=== PATIENT | female | born 1990 | race Caucasian/White ===

== ENCOUNTER 2019-03-20 09:47 | Emergency (ER) | payer OTHER, SELFPAY ==
--- NOTE | 2019-03-20 09:49 | ED.GENADULT ---
HPI - General Adult General Chief complaint: Upper Respiratory Infection Stated complaint: sore throat Time Seen by Provider: 03/20/19 10:13 Source: patient Mode of arrival: ambulatory Limitations: no limitations History of Present Illness HPI narrative: 28-year-old female patient presents to the [facility] with complaints of cold symptoms and sore throat for the past week and a half. Patient states that her sore throat has gotten worse the past couple of days. Denies any fever this that she is aware of. Patient states she has had a little bit of cough and some congestion denies any chest pain or shortness of breath at this time. Patient unsure if she got a flu shot or not this year states that she did recently did have a baby in December. Related Data Allergies Allergy/AdvReac Type Severity Reaction Status Date / Time amoxicillin Allergy Unknown Hives Verified 03/20/19 10:01 Review of Systems Review of Systems: Narrative: CONSTITUTIONAL: Denies fever, chills, or sweats. EYES: Denies visual changes, redness, or discharge. ENT: Denies rhinorrhea, congestion, positive sore throat, or otalgia. CARDIOVASCULAR: Denies chest pain, palpitations, or edema. RESPIRATORY: Positive cough denies dyspnea. GASTROINTESTINAL: Denies abdominal pain, nausea, vomiting, or diarrhea. GENITOURINARY: Denies dysuria or hematuria. SKIN: Denies rash or itching. MUSCULOSKELETAL: Denies back pain, joint pain, or myalgia. NEUROLOGIC: Denies headache, numbness, or weakness. PSYCHIATRIC: Denies anxiety or depression. [facility] Past Medical History Medical History Delivery by section of full-term Hypertension Tobacco abuse Surgical History Surgical History Hx of tubal ligation Previous section Family History Family History Mother Diabetes mellitus Family history of hypercholesterolemia Grandparent Carcinoma of colon Other Cerebrovascular accident Family history of malignant neoplasm of breast Social History Social History Smoking packs per day: 0.5 Smoking cigarettes per day: 10.0 Smoking status: Current every day smoker Tobacco type: cigarettes Second hand tobacco smoke exposure: Yes Alcohol intake: current Substance use: current Substance use type: marijuana Gender identity (if verbalized by the patient): Female Comments At the time of my signature I agree with nursing past medical history, surgical, social, and family history. There is no relevant family history pertinent to the presenting complaint. Exam Narrative: Exam Narrative: GENERAL: Well-appearing, well-nourished, and in no acute distress. HEAD: Normocephalic, atraumatic. EYES: PERRLA and EOMI. ENT: Nares with erythema and edema noted bilaterally, no rhinorrhea or epistaxis. Mucous membranes moist. Posterior pharynx with some erythema but no tonsillar large but no exudates or lesions present. Bilateral TMs are clear no erythema or foreign bodies in the canal. NECK: Supple. No lymphadenopathy CHEST: Clear to auscultation. No respiratory distress. HEART: Regular rate and rhythm. No murmur heard. Normal peripheral pulses. ABDOMEN: Soft, nontender, nondistended, normal active bowel sounds. EXTREMITIES: Normal range of motion. No edema. SKIN: Warm, dry, no rash. NEURO: No focal deficits. Alert and oriented x3. Course Vital Signs Vital signs: Vital Signs Temperature 36.4 C L 03/20/19 09:51 Pulse Rate 111 H 03/20/19 09:51 Respiratory Rate 18 03/20/19 09:51 Blood Pressure 100/70 03/20/19 09:51 Pulse Oximetry 99 03/20/19 09:51 Temperature 36.4 C L 03/20/19 09:51 Pulse Rate 111 H 03/20/19 09:51 Respiratory Rate 18 03/20/19 09:51 Blood Pressure 100/70 03/20/19 09:51 Pulse Oximetry 99 0
[2019-03-20 09:51] VITALS: BP 100/70; PULSE 111; RESP 18; TEMP 36.4; O2SAT 99
== END 2019-03-20 10:28 | disposition home or self-care (01) ==
PROVIDERS: Emergency Provider Nurse Practitioner Family
DX: J02.0 Streptococcal pharyngitis (principal); F17.210 Nicotine dependence, cigarettes, uncomplicated; I10 Essential (primary) hypertension
CPT/HCPCS: 87880; 99213; G0463

== ENCOUNTER 2019-10-08 10:55 | Emergency (ER) | payer OTHER, SELFPAY ==
[2019-10-08 11:08] VITALS: BP 100/64; PULSE 73; RESP 16; TEMP 36.7; O2SAT 100
--- NOTE | 2019-10-08 11:25 | ED.FEMALEGU ---
HPI - Female Genitourinary General Chief complaint: Urogenital-Female Stated complaint: Urogenital-female Time Seen by Provider: 10/08/19 11:20 Source: patient and RN notes reviewed Mode of arrival: ambulatory Limitations: no limitations History of Present Illness HPI Narrative: Patient presents today complaining of dysuria, urgency, and frequency since yesterday. She noted some blood on her toilet paper this morning. Denies fever, abdominal pain, back pain. No recent antibiotic use. Patient tried Azo yesterday without relief. MD elicited complaint: dysuria Related Data Allergies Allergy/AdvReac Type Severity Reaction Status Date / Time amoxicillin Allergy Unknown Hives Verified 10/08/19 11:21 Review of Systems Review of Systems: Narrative: CONSTITUTIONAL: Denies body aches, fever, chills, or sweats. EYES: Denies visual changes, redness, or discharge. ENT: Denies rhinorrhea, congestion, sore throat, or otalgia. CARDIOVASCULAR: Denies chest pain, palpitations, or edema. RESPIRATORY: Denies cough or dyspnea. GASTROINTESTINAL: Denies abdominal pain, nausea, vomiting, or diarrhea. GENITOURINARY: +Dysuria, urgency, frequency, blood on toilet paper SKIN: Denies rash, itching, or wounds. MUSCULOSKELETAL: Denies back pain, joint pain, or myalgia. NEUROLOGIC: Denies headache, numbness, tingling, or weakness. PSYCH: Denies depression or anxiety. PMFSH Social History Social History Smoking packs per day: 0.5 Smoking cigarettes per day: 10.0 Smoking status: Current every day smoker Tobacco type: cigarettes Second hand tobacco smoke exposure: Yes Alcohol intake: current Substance use: current Substance use type: marijuana Gender identity (if verbalized by the patient): Female Comments At time of signature, I have reviewed and agree with nursing past medical, surgical, social and family history unless otherwise noted. Please see nursing chart for further information. There is no relevant family history pertinent to the presenting complaint Exam Narrative: Exam Narrative: GENERAL: Well-appearing, well-nourished, and in no acute distress. HEAD: Normocephalic, atraumatic. EYES: EOMI. No redness or drainage. Conjunctivae normal. ENT: Mucous membranes pink and moist. NECK: Normal AROM. Supple. No lymphadenopathy. CHEST: No respiratory distress. Clear to auscultation. HEART: Regular rate and rhythm. No murmur appreciated. Normal peripheral pulses. ABDOMEN: Soft, nondistended, normal active bowel sounds.-CVAT, Mild suprapubic tenderness MUSCULOSKELETAL: No bony tenderness. EXTREMITIES: Normal range of motion. No edema. SKIN: Warm, dry, no rash. Capillary refill normal. Normal skin turgor. NEURO: No focal deficits. Alert and oriented x3. Gait steady. PSYCH: Normal affect. No signs of depression or anxiety. Course Vital Signs Vital signs: Vital Signs Temperature 98.0 F 10/08/19 11:08 Pulse Rate 73 10/08/19 11:08 Respiratory Rate 16 10/08/19 11:08 Blood Pressure 100/64 10/08/19 11:08 Pulse Oximetry 100 10/08/19 11:08 Temperature 98.0 F 10/08/19 11:08 Pulse Rate 73 10/08/19 11:08 Respiratory Rate 16 10/08/19 11:08 Blood Pressure 100/64 10/08/19 11:08 Pulse Oximetry 100 10/08/19 11:08 Reviewed MDM - Female Genitourinary Differential Diagnosis Differential diagnosis: Likely urinary tract infection, vaginitis, cystitis and other (Pyelonephritis) Lab Data Attestation: I reviewed the patient's lab results. Labs: Urine Glucose Negative Reference Range: Negative Urine Bilirubin Negative Reference Range: Negative Urine Ketone Negative Reference Range: Negative Urine Specific [place] 1.030 Reference Range:1.001-1.035 Urine Blood 3+ Reference Range: Negative * *
== END 2019-10-08 11:31 | disposition home or self-care (01) ==
PROVIDERS: Emergency Provider Nurse Practitioner
DX: N30.01 Acute cystitis with hematuria (principal); F17.210 Nicotine dependence, cigarettes, uncomplicated
CPT/HCPCS: 81003; 87077; 87086; 87088; 87186; 99213; G0463

== ENCOUNTER 2020-01-08 13:07 | Emergency (ER) | payer OTHER, SELFPAY ==
[2020-01-08 13:10] VITALS: BP 132/66; PULSE 77; RESP 18; TEMP 36.3; O2SAT 99
--- NOTE | 2020-01-08 13:10 | ED.FEMALEGU ---
HPI - Female Genitourinary General Chief complaint: Urogenital-Female Stated complaint: UTI Time Seen by Provider: 01/08/20 13:10 Source: patient and RN notes reviewed History of Present Illness HPI Narrative: Patient is a 29-year-old female who presents the urgent care with complaints of a possible UTI. Patient states that she had a tubal after her last baby and has had 6 UTIs in the last year. Patient states that her symptoms started today with burning with urination, urinary frequency, suprapubic pressure, decreased urine amounts, and blood when she wipes. Patient denies of any fever, chills, nausea, vomiting. Patient's last 2 antibiotics were Macrobid in September and Sulfa in October. No other acute complaints. No acute distress noted. Patient aware of the plan of care. Some parts of this dictation were generated by voice recognition software and may contain typographical and/or grammatical inaccuracies. Related Data Allergies Allergy/AdvReac Type Severity Reaction Status Date / Time amoxicillin Allergy Unknown Hives Verified 01/08/20 13:19 Review of Systems Review of Systems: Narrative: CONSTITUTIONAL: Denies fever, chills, or sweats. EYES: Denies visual changes, redness, or discharge. ENT: Denies rhinorrhea, congestion, sore throat, or otalgia. CARDIOVASCULAR: Denies chest pain, palpitations, or edema. RESPIRATORY: Denies cough or dyspnea. GASTROINTESTINAL: Denies abdominal pain, nausea, vomiting, or diarrhea. GENITOURINARY: Reports of dysuria, urinary frequency, decreased urine amounts, suprapubic pressure and hematuria SKIN: Denies rash or itching. MUSCULOSKELETAL: Denies back pain, joint pain, or myalgia. NEUROLOGIC: Denies headache, numbness, or weakness. All other systems reviewed are negative, except as documented in HPI. [facility] Past Medical History Medical History (Updated 01/08/20 @ 13:27 by ALEXANDER La) Delivery by section of full-term Hypertension Tobacco abuse Surgical History Surgical History Hx of tubal ligation Previous section Family History Family History Mother Diabetes mellitus Family history of hypercholesterolemia Grandparent Carcinoma of colon Other Cerebrovascular accident Family history of malignant neoplasm of breast Social History Social History Smoking packs per day: 0.5 Smoking cigarettes per day: 10.0 Smoking status: Current every day smoker Tobacco type: cigarettes Second hand tobacco smoke exposure: Yes Alcohol intake: current Substance use: current Substance use type: marijuana Gender identity (if verbalized by the patient): Female Comments At the time of my signature, I reviewed and agree with the nursing past medical, surgical, social, and family history. There is no relevant family history pertinent to the patient complaint. Exam Narrative: Exam Narrative: GENERAL: This is a well-nourished, well-developed patient, in no apparent distress. HEAD: normocephalic, atraumatic. EYES: PERRL. Sclera clear/white. Vision is grossly intact. EARS: External ears normal NOSE: External nose normal with no obvious nasal discharge, nares without redness, no rhinorrhea. THROAT: Mucous membranes moist GASTROINTESTINAL: Abdomen soft, non-tender, nondistended. Bowel sounds are active. No hepato-splenomegaly, or palpable masses. No guarding. SKIN: warm, intact with no suspicious lesions or rash, good texture and turgor. NEURO: awake, alert, and oriented to person, place and time. There were no obvious focal neurologic abnormalities. EXTREMITIES: No clubbing, cyanosis, or edema. BACK: Nontender without deformity or crepitance. No flank tenderness. Course Vital Signs Vital signs: Vital Signs Temperature 97.3 F L 01/08/20 13:10 Pulse Rate 77 01/08/20 13:10 Re
== END 2020-01-08 13:30 | disposition home or self-care (01) ==
PROVIDERS: Emergency Provider Nurse Practitioner Family
DX: N39.0 Urinary tract infection, site not specified (principal); F17.210 Nicotine dependence, cigarettes, uncomplicated; I10 Essential (primary) hypertension
CPT/HCPCS: 81003; 87077; 87086; 87088; 87186; 99213; G0463

== ENCOUNTER 2020-06-09 12:42 | Emergency (ER) | payer OTHER, SELFPAY ==
--- NOTE | ~2020-06-09 | US_ITS ---
US venous doppler [facility] DATE: 06/09/2020 14:44 INDICATION: Left lower extremity pain TECHNIQUE: Real-time and color flow imaging and Doppler analysis of the veins of the left lower extre mity COMPARISON: None FINDINGS: There is flow in the greater saphenous vein. There is spontaneous and phasic flow and kelly l augmentation and normal color flow signal of the deep veins of the left leg. IMPRESSION: Negative examination; no evidence of deep venous thrombosis Reviewed, dictated and finalized at [facility] Reviewed, dictated and finalized at [facility].
[2020-06-09 12:44] VITALS: BP 124/80; PULSE 103; RESP 17; TEMP 36.1; O2SAT 99
--- NOTE | 2020-06-09 13:51 | ED.GENADULT ---
HPI - General Adult General Chief complaint: Extremity Problem,Nontraumatic Stated complaint: leg pain hx of DVT Time Seen by Provider: 06/09/20 13:09 Source: patient History of Present Illness HPI narrative: Patient is 29 y/o female complaining of left lower leg pain since yesterday. She describes her pain as a soreness and rates her pain as 6-7/10. There is no pain radiation. She has no chest pain or SOB. She states that she was recently diagnosed with DVT at [facility]. She was started on Xarelto. Related Data Home Medications Medication Instructions Recorded Confirmed oxycodone-acetaminophen 5 mg-325 1 tablet PO Q6H PRN 06/09/20 mg tablet rivaroxaban 15 mg tablet 15 mg PO BID tablet 06/09/20 Allergies Allergy/AdvReac Type Severity Reaction Status Date / Time amoxicillin Allergy Unknown Hives Verified 06/09/20 12:48 Review of Systems Constitutional: Constitutional: Denies chills, Denies fever(s), Denies headache(s) and Denies weakness Eyes: Eyes: Denies blurry vision ENT: Denies headache(s) and Denies neck pain Cardiovascular: Cardiovascular: Denies chest pain and Denies dyspnea Respiratory: Respiratory: Denies cough and Denies dyspnea Gastrointestinal: Gastrointestinal: Denies abdominal pain, Denies diarrhea, Denies nausea and Denies vomiting Genitourinary: Genitourinary: Denies hematuria and Denies dysuria Musculoskeletal: Musculoskeletal: Denies back pain, Denies neck pain and Reports other (left leg pain) Neurologic: Denies headache(s) and Denies weakness COUNT INCLUDES THE [facility] Past Medical History Medical History (Updated 06/09/20 @ 14:56 by Romana Vitale MD) Delivery by section of full-term infant Hypertension Tobacco abuse Surgical History Surgical History Hx of tubal ligation Previous section Family History Family History Mother Diabetes mellitus Family history of hypercholesterolemia Grandparent Carcinoma of colon Other Cerebrovascular accident Family history of malignant neoplasm of breast Social History Social History Smoking packs per day: 0.5 Smoking cigarettes per day: 10.0 Smoking status: Current every day smoker Tobacco type: cigarettes Second hand tobacco smoke exposure: Yes Alcohol intake: current Substance use: current Substance use type: marijuana Gender identity (if verbalized by the patient): Female Exam Const: General: no acute distress and well developed Orientation/consciousness: oriented to person, oriented to place, oriented to time and patient oriented x3 HENMT: Head: normocephalic Ears: external ears normal General nose exam: Normal external nose present Eyes: General: appearance normal, both eyes and all related structures Conjunctivae: conjunctivae normal Neck: Neck: normal visual inspection and full ROM Chest: Chest palpation & inspection: normal inspection of the chest and no tenderness Resp: Effort & Inspection: normal respiratory effort Auscultation: clear to auscultation bilaterally Cardio: Rate: regular rate Rhythm: regular rhythm GI: GI Palp: No abdominal tenderness and Yes Soft to palpation Skin: General skin exam: normal color and turgor normal Neuro: General: oriented to person, oriented to place, oriented to time and patient oriented x3 Cognition (Neuro): normal cognition Extrem: General: normal to inspection, full ROM and no pedal edema Psych: Appearance: grossly normal Mental Status: mental status grossly normal Affect: normal affect Course Vital Signs Vital signs: Vital Signs Temperature 36.1 C L 06/09/20 12:44 Pulse Rate 103 H 06/09/20 12:44 Respiratory Rate 17 06/09/20 12:44 Blood Pressure 124/80 06/09/20 12:44 Pulse Oximetry 99 06/09/20 12:44 Temperature 36.1 C L 06/09/20 12:44 Pulse Rate 103 H
[2020-06-09 14:26] LABS: Add Urine Microscopic? YES; Appearance Urine Cloudy (Clear); Bacteria Urine Trace /hpf; Bilirubin Urine Negative (Negative); Blood Urine 1+ (Negative); Color Urine Yellow (Yellow); Glucose Urine UA Negative (Negative); Ketones Urine Negative (Negative); Leukocyte Esterase Ur 3+ LEU/UL (Negative); Mucus Urine Few /lpf; Nitrate Urine Negative (Negative); Protein Urine Negative (Negative); RBC Urine 21-50 /hpf (0-2); Specific Grav Ur 1.026 (1.001-1.035); Squamous Epithelial Cell Urine Many /hpf (Few); Urobilinogen Urine Negative mg/dL (<2.0); WBC Urine 31-50 /hpf
== END 2020-06-09 15:06 | disposition home or self-care (01) ==
PROVIDERS: Emergency Provider Emergency Medicine; PCP Physician Assistant
DX: M79.662 Pain in left lower leg (principal); F17.210 Nicotine dependence, cigarettes, uncomplicated; I10 Essential (primary) hypertension
CPT/HCPCS: 81001; 81025; 87077; 87086; 87088; 87186; 93971; 99284

== ENCOUNTER 2021-11-10 15:22 | Emergency (ER) | payer OTHER, SELFPAY ==
[2021-11-10 15:40] VITALS: BP 120/61; PULSE 83; RESP 16; TEMP 36.6; O2SAT 99
--- NOTE | 2021-11-10 16:20 | ED.URI ---
HPI - URI/Sore Throat General Chief Complaint: Upper Respiratory Infection Stated Complaint: Sore Throat Time Seen by Provider: 11/10/21 15:38 Source: patient, RN notes reviewed and old records reviewed Mode of arrival: ambulatory Limitations: no limitations History of Present Illness HPI Narrative: 31-year-old female presents to [facility] care with complaints of 2-1/2 days of severe pain to her throat which she describes as burning and rates it 8/10. Patient also has cough noted which is dry and hacking.no tachypnea noted or accessory muscle use noted. Patient states she has not taken any OTC medications for her symptoms. Patient states that she looked at her throat today and though she had better been seen. Patient denies any known fevers, chills or sweats, denies any body aches. MD elicited complaint: cough and sore throat Onset (ago): day(s) (2.5 days of symptoms) Pain scale (0-10): 8 Exacerbating factors: swallowing and other (coughing ) Treatments prior to arrival: none Related Data Home Medications Medication Instructions Recorded Confirmed meloxicam 7.5 mg tablet 7.5 mg PO DAILY 11/10/21 11/10/21 Allergies Allergy/AdvReac Type Severity Reaction Status Date / Time amoxicillin Allergy Unknown Hives Verified 11/10/21 15:38 Review of Systems Review of Systems: CONSTITUTIONAL: Denies fever, chills, or sweats. EYES: Denies visual changes, redness, or discharge. ENT: positive for rhinorrhea, congestion, sore throat, no otalgia. CARDIOVASCULAR: Denies chest pain, palpitations, or edema. RESPIRATORY: positive for cough denies dyspnea. GASTROINTESTINAL: Denies abdominal pain, nausea, vomiting, or diarrhea. GENITOURINARY: Denies dysuria or hematuria. SKIN: Denies rash or itching. MUSCULOSKELETAL: Denies back pain, joint pain, or myalgia. NEUROLOGIC: Denies headache, numbness, or weakness. PSYCHIATRIC: Denies anxiety or depression. All systems reviewed & are unremarkable except as noted in HPI and below PMFSH Past Medical History Medical History Delivery by section of full-term infant Hypertension Tobacco abuse Surgical History Surgical History Hx of tubal ligation Previous section Family History Family History Mother Diabetes mellitus Family history of hypercholesterolemia Grandparent Carcinoma of colon Other Cerebrovascular accident Family history of malignant neoplasm of breast Social History Social History Smoking packs per day: 0.5 Smoking cigarettes per day: 10.0 Smoking status: Current every day smoker Tobacco type: cigarettes Second hand tobacco smoke exposure: Yes Alcohol intake: current Substance use: current Substance use type: marijuana Gender identity (if verbalized by the patient): Female Comments At time of signature, agree with nursing past medical, surgical, social and family history. There is no relevant family history pertinent to the presenting complaint Exam Narrative: GENERAL:ill-appearing, well-nourished, and in no acute distress. HEAD: Normocephalic, atraumatic. EYES: PERRLA and EOMI. ENT: Nares with mild redness with clear rhinorrhea no epistaxis. Mucous membranes moist. TM's with good light reflex, throat red swollen with enlarged tonsils, uvula red and swollen. Patient reports burning throat pain and painful swallowing NECK: Supple.lymphadenopathy CHEST: Clear to auscultation. No respiratory distress.hacking dry cough noted which increases throat pain HEART: Regular rate and rhythm. No murmur heard. Normal peripheral pulses. ABDOMEN: Soft, nontender, nondistended, normal active bowel sounds. EXTREMITIES: Normal range of motion. No edema. SKIN: Warm, dry, no rash. NEURO: No focal deficits. Alert and oriented x3. [facility]
== END 2021-11-10 16:35 | disposition home or self-care (01) ==
PROVIDERS: Emergency Provider Registered Nurse; PCP Physician Assistant
DX: R05.1 Acute cough (principal); J03.90 Acute tonsillitis, unspecified; F17.210 Nicotine dependence, cigarettes, uncomplicated; F12.90 Cannabis use, unspecified, uncomplicated; I10 Essential (primary) hypertension
CPT/HCPCS: 87081; 87880; 99213; G0463

== ENCOUNTER 2023-05-05 09:14 | Emergency (ER) | payer OTHER, SELFPAY ==
[2023-05-05 09:20] VITALS: BP 116/61; PULSE 107; RESP 16; TEMP 36.4; O2SAT 100
--- NOTE | 2023-05-05 09:59 | ED.EYEPROB ---
HPI - Eye Problem General Chief complaint: Eye Problems Stated complaint: poss pink eye Source: patient Mode of arrival: ambulatory Limitations: no limitations History of Present Illness HPI Narrative: 32-year-old female presented for complaint of broken blood vessel to the left inner eye as well as redness and irritation to both eyes over the past few days. She endorses both of her children have pinkeye. She has used some of their prescribed antibiotic drops with some improvement in her symptoms. She states she broke a blood vessel when she bent over to tie her shoe. She currently denies eye pain, vision changes, Headache, dizziness, nausea, vomiting, fevers or chills. MD chief complaint: eye pain Related Data Allergies Allergy/AdvReac Type Severity Reaction Status Date / Time amoxicillin Allergy Unknown Hives Verified 05/05/23 09:50 Review of Systems Review of Systems: CONSTITUTIONAL: Denies body aches, fever, chills EYES: Endorses broken blood vessel in left eye, redness and irritation to both eyes; Denies swelling, FB sensation, photophobia, visual changes ENT: Denies rhinorrhea, congestion, sore throat, or otalgia. CARDIOVASCULAR: Denies chest pain, palpitations RESPIRATORY: Denies cough or dyspnea. GASTROINTESTINAL: Denies abdominal pain, nausea, vomiting, or diarrhea. SKIN: Denies rash, itching, or wounds. MUSCULOSKELETAL: Denies back pain, joint pain, or myalgia. NEUROLOGIC: Denies headache, numbness, tingling, or weakness. All systems reviewed & are unremarkable except as noted in HPI and below PMFSH Past Medical History Medical History (Updated 05/05/23 @ 10:23 by Ana Hennessy APRN) Delivery by section of full-term infant Hypertension Tobacco abuse Surgical History Surgical History Hx of tubal ligation Previous section Family History Family History Mother Diabetes mellitus Family history of hypercholesterolemia Grandparent Carcinoma of colon Other Cerebrovascular accident Family history of malignant neoplasm of breast Social History Social History Smoking packs per day: 0.5 Smoking cigarettes per day: 10.0 Smoking status: Current every day smoker Tobacco type: cigarettes Second hand tobacco smoke exposure: Yes Alcohol intake: current Substance use: current Substance use type: marijuana Gender identity (if verbalized by the patient): Female Comments At time of signature, I have reviewed and agree with nursing past medical, surgical, social and family history unless otherwise noted. Please see nursing chart for further information. There is no relevant family history pertinent to the presenting complaint Exam Narrative: GENERAL: Well-appearing HEAD: Normocephalic, atraumatic. EYES: mild bilateral conjunctival injection, minimal discharge, Left medial eye with subconjunctival hemorrhage; No eye lid swelling/redness c/w stye. PERRLA, EOMI. Lid eversion shows no fb. ENT: Mucous membranes pink and moist. nasal congestion noted. TMs normal bilaterally. Throat normal. Uvula midline. CHEST: Clear to auscultation. SKIN: Warm, dry, no rash. Normal skin turgor. NEURO: No focal deficits. Alert and oriented x3 PSYCH: Normal affect. Course Course Emergency Course: Patient is aware of diagnosis, understands and agrees to treatment plan. Anticipatory guidance given. Patient agrees to follow-up as directed and is aware of reasons to seek care at the emergency department. Portions of this record may have been created with voice recognition software Level of Care: Express Care Visit Vital Signs Vital signs: Vital Signs Temperature 97.6 F 05/05/23 09:20 Pulse Rate 107 H 05/05/23 09:20 Respiratory Rate 16 05/05/23 09:20 Blood Pressure 116/61 05/05/23 09:2
== END 2023-05-05 10:10 | disposition home or self-care (01) ==
PROVIDERS: Emergency Provider Nurse Practitioner Family; PCP Physician Assistant
DX: H11.32 Conjunctival hemorrhage, left eye (principal); H10.9 Unspecified conjunctivitis; F17.210 Nicotine dependence, cigarettes, uncomplicated; I10 Essential (primary) hypertension
CPT/HCPCS: 99213; G0463

== ENCOUNTER 2024-12-09 12:11 | Emergency (ER) | payer OTHER, SELFPAY ==
[2024-12-09 12:25] VITALS: BP 103/54; PULSE 80; RESP 16; TEMP 36.7; O2SAT 100
[2024-12-09 12:48] LABS: EDUAAPPEAR Clear; EDUABILI Negative (Negative); EDUABLOOD Negative (Negative); EDUACOLOR1 Yellow; EDUAGLUCOSE Negative (Negative); EDUAKETONE Negative (Negative); EDUALEUKO Negative (Negative); EDUANITRATE Negative (Negative); EDUAPH 6.0; EDUAPROTEIN Negative (Negative); EDUASPGRAVITY 1.030; EDUAUROBILI 1.0
--- NOTE | 2024-12-09 13:19 | ED_ITS ---
HPI - Female Genitourinary General Chief complaint: Urogenital-Female Stated complaint: Urinary Problem Time Seen by Provider: 12/09/24 12:45 Source: patient and RN notes reviewed Mode of arrival: ambulatory Limitations: no limitations History of Present Illness HPI Narrative: 34-year-old female presents Express Care complaining of dysuria and foul- smelling urine for approximally 3 weeks. Patient 3 weeks ago she had unprotected sex develops symptoms afterwards. Patient denies any vaginal discharge, vaginal bleeding, nausea, vomiting, diarrhea, abdominal pain, pelvic pain, frequency, hesitancy, fevers, body aches, chills, back pain, flank pain, any other symptoms. Patient denies any significant past medical history. Related Data Allergies Allergy/AdvReac Type Severity Reaction Status Date / Time amoxicillin Allergy Unknown Hives Verified 12/09/24 12:30 Review of Systems Review of Systems: CONSTITUTIONAL: Denies fever, chills, or sweats. EYES: Denies visual changes, redness, or discharge. ENT: Denies rhinorrhea, congestion, sore throat, or otalgia. CARDIOVASCULAR: Denies chest pain, palpitations, or edema. RESPIRATORY: Denies cough or dyspnea. GASTROINTESTINAL: Denies abdominal pain, nausea, vomiting, or diarrhea. GENITOURINARY: Positive for dysuria. Negative for pelvic pain, vaginal discharge vaginal bleeding, hematuria. SKIN: Denies rash or itching. MUSCULOSKELETAL: Denies back pain, joint pain, or myalgia. NEUROLOGIC: Denies headache, numbness, or weakness. PSYCHIATRIC: Denies anxiety or depression. All other systems reviewed are negative, except as documented in HPI. [facility] Past Medical History Medical History Delivery by section of full-term Tobacco abuse Hypertension Surgical History Surgical History Hx of tubal ligation Previous section Family History Family History Mother Diabetes mellitus Family history of hypercholesterolemia Grandparent Carcinoma of colon Other Cerebrovascular accident Family history of malignant neoplasm of breast Social History Social History Smoking packs per day: 0.5 Smoking cigarettes per day: 10.0 Smoking status: Current every day smoker Tobacco type: cigarettes Second hand tobacco smoke exposure: Yes Alcohol intake: current Substance use: current Substance use type: marijuana Gender identity (if verbalized by the patient): Female Comments At the time of my signature, I reviewed and agree with the nursing past medical, surgical, social, and family history. There is no relevant family history pertinent to the patient complaint. Exam Narrative: GENERAL: This is a well-nourished, well-developed adult, in no apparent di stress. They are non ill-appearing, nontoxic appearing. HEAD: normocephalic, atraumatic. EYES: Sclera clear/white. Conjunctiva normal. Vision is grossly intact. Extraocular movements intact EARS: External ears normal, Hearing grossly intact. NOSE: External nose normal THROAT: Mucous membranes moist, NECK: Neck supple, CARDIOVASCULAR: Regular rate and rhythm RESPIRATORY: Respiratory rate normal, respiratory effort nonlabored, no respiratory distress GASTROINTESTINAL: Abdomen soft, non-tender, nondistended. GENITOURINARY: Deferred SKIN: warm, Dry, intact with no suspicious lesions or rash, good texture and turgor. NEURO: awake, alert, and oriented to person, place and time. There were no obvious focal neurologic abnormalities. EXTREMITIES: No joint tenderness, effusion, or edema noted. BACK: Nontender without deformity. No CVA tenderness. Course Course Emergency Course: Portions of this record may have been created with voice recognition software Level of Care: Express Care Visit Vital Signs Vital signs: Vital Signs Temperature 98.1 F 12/09/24 12: Pulse Rate 80 12/09/24 12: Respiratory Rate 16 12/09/24 12:25 Blood Pressure 103/54 L 12/09/24 12:25 Pulse Oximetry 100 12/09/24 12:25 Oxygen Delivery Room Air 12/09/24 12:25 Temperature 98.1 F 12/09/24 12: Pulse Rate 80 12/09/24 12: Respiratory Rate 16 12/09/24 12:25 Blood Pressure 103/54 L 12/09/24 12: Pulse Oximetry 100 12/09/24 12:25 Oxygen Delivery Room Air 12/09/24 12:25 Reviewed MDM - Female Genitourinary MDM Narrative Medical decision making narrative: Urine dipstick negative for any evidence of infection. Urine culture pending. Patient is concerned she may have an STI. Trichomonas, chlamydia, gonorrhea are pending. Through shared decision making with patient discussed waiting for treatment until cultures result or to go ahead and empirically treat. Patient would like treatment for STDs. Patient given a shot of ceftriaxone today. Patient will be sent home with doxycycline and metronidazole. Advised patient drink alcohol with metronidazole as it may make her very sick. Discussed physical exam findings. Advised supportive measures and signs/symptoms to go to the ER. Pt is appropriate for outpt treatment and f/u. Differential Diagnosis Differential diagnosis: Likely urinary tract infection, trichomoniasis, vaginitis and cystitis Lab Data Attestation: I reviewed the patient's lab results. Labs: Lab Results 12/09/24 Range/Units 12:38 POC Urine Color Yellow POC Urine Clarity Clear POC Urine pH 6.0 POC Ur Specif Mobile 1.030 POC Urine Protein Negative (Negative) POC Ur Glucose (UA) Negative (Negative) POC Urine Ketones Negative (Negative) POC Urine Blood Negative (Negative) POC Urine Nitrite Negative (Negative) POC Urine Bilirubin Negative (Negative) POC Urine Urobilinogen 1.0 POC U Leukocyte Esteras Negative (Negative) Critical Care Time Critical Care Time Critical Care Time: No Discharge Plan Discharge Clinical Impression: Dysuria, STD exposure Patient Disposition: Home Condition: Stable Instructions: Antibiotic Form, Sexually Transmitted Diseases (ED), Dysuria (ED) Additional Instructions: Your urine will be sent off to assess for bacteria, and if it is positive for any bacteria you will be contacted started on appropriate antibiotics. Your urine sample has been sent off to test for gonorrhea, chlamydia, and trichomonas infections. ?These tests can take up to 1-3 days to come back. You Will be notified the results once they have resulted. Please remain abstinent until you know your results or have completed full treatment for an STD. Do not drink alcohol with metronidazole it may make you very sick. Follow-up with PCP in 3-5 days. If your symptoms worsen, you developed fever, abdominal pain, nausea, vom iting, vaginal bleeding, pelvic pain or any other concerns please go to the ER immediately. Patient Language: [place] Prescriptions: New metronidazole 500 mg tablet 500 mg PO BID 7 Days Qty: 14 0RF doxycycline monohydrate 100 mg capsule 100 mg PO BID 7 Days Qty: 14 0RF Follow-up/Referrals: PHYSICIAN,[facility]SKEEPER LABORER [Primary Care Provider, Internal Medicine] Time of Disposition: 13:07
[2024-12-09] MEDS: cefTRIAXone 500 MG, LIDOCAINE 1% LOCAL INJ 1 ML IM (13:22)
[2024-12-09 20:37] LABS: Trichomonas Vag PCR NOT DETECTED (NOT DETECTE)
== END 2024-12-09 13:48 | disposition home or self-care (01) ==
DX: R30.0 Dysuria (principal); Z20.2 Contact with and (suspected) exposure to infections with a predominantly sexual mode of transmission; I10 Essential (primary) hypertension; F17.210 Nicotine dependence, cigarettes, uncomplicated
CPT/HCPCS: 81003; 87086; 87491; 87591; 87661; 96372; 99213; G0463; J0696; J2003

== ENCOUNTER 2025-02-16 11:21 | Emergency (ER) | payer OTHER, SELFPAY ==
[2025-02-16 11:26] VITALS: BP 120/68; PULSE 96; RESP 14; TEMP 36.7; O2SAT 99
--- OUTSIDE RECORDS SUMMARY | 2025-02-16 11:26 | XMS_ITS | Clinical Summary ---
Author Organization [facility] Address [address] [place] [address] Phone Care Team Providers Care Crop Research Scientist Name Role Phone Sophie Green RHETT Primary Care Provider + Ross Funez DPM Unavailable Unavailable Allergies Active Allergy Reactions Criticality Noted Date Comments Amoxicillin Hives 03/09/2015 Medications traMADol (ULTRAM) 50 MG TabletIndicatio ns:Acute low back pain Take 1 Tablet by mouth every 8 hours as needed for Moderate or more severe pain. 12 Tablet 04/01/2023 Active traMADol (ULTRAM) 50 MG TabletIndicatio ns:Dental caries Take 1-2 Tablets by mouth every 6 hours as needed for Mild or more severe pain. 20 Tablet 08/10/2024 Active Active Problems No known active problems Immunizations Immunization Administration Dates Next Due DTP Vaccine 09/29/1994, 3,04/03/1991,1990,01/10/1990 Hepatitis B Vaccine, Pediatric/adolescent 06/07/1999,02/03/1999,12/30/1998 Hib Vaccine,unspecified Formulation 04/03/1991,0 06/05/1990 MMR Vaccine 09/29/1994,09/29/1992,04/03/1991 OPV 10/09/1992,01/10/1990 TD VACCINE 04/21/2003 TDAP Vaccine 03/07/2022,03/23/2013 Family History Medical History Relation Name Comments Alcohol Abuse Father Drug Abuse Father Alcohol Abuse Maternal Grandfather Colon Cancer Maternal Grandfather Alcohol Abuse Maternal Grandmother Alcohol Abuse Mother Drug Abuse Mother Hypertension Mother Breast Cancer Other Aunt Alcohol Abuse Sister Relation Name Status Comments Father Alive Maternal Grandfather Maternal Grandmother Mother Alive Other Aunt Alive Paternal Grandfather Paternal Grandmother Sister Social History Tobacco Use Types Packs/Day Years Used Date Smoking Tobacco: Every Day Cigarettes 0.5 18.8 Started: 05/06/2006 Smokeless Tobacco: Never Tobacco Cessation:Ready to Q uit: Not Asked; Counseling Given: Not Answered Alcohol Use Standard Drinks/Week Comments No 0 (1 standard drink = 0.6 oz pur e alcohol) PHQ-2 Answer Date Recorded Total Score - Questions 1-9 0 04/21 Sexually Active Control Partners Comments Yes Male Comments No Sex and Gender Information Value Date Recorded Sex Assigned at Not on file Legal Sex Female 7:44 PM CDT Gender Identity Not on file Sexual Orientation Not on file Last Filed Vital Signs Vital Sign Reading Time Taken Comments Blood Pressure 120/75 08/10/2024 10:15 PM CDT Pulse 96 08/10/2024 8:49 PM CDT Temperature 36.9 C (98.4 F) 08/10/2024 8:49 PM CDT Respiratory Rate 17 08/10/2024 8:49 PM CDT Oxygen Saturation 100% 08/10/2024 8:49 PM CDT Inhaled Oxygen Concentration - - Weight 68 kg (150 lb) 08/10/2024 8:49 PM CDT Height 177.8 cm (5' 10) 08/10/2024 8:49 PM CDT Body Mass Index 21.52 08/10/2024 8:49 PM CDT Plan of Treatment Health Maintenance Due Date Last Done Comments Varicella Immunization (1 of 2 - 13+ 2-dose series) 2002 Pneumococcal Immunization Combined (2 of 2 - PCV) 12/30/2014 12/30/2013 Influenza Immunization (#1) 2024 SARS-COV-2 Immunization ( - season) 2024 Pap Smear 06/13/2025 06/13/2022 Cervical Cancer Screening (CCS) 06/14/2027 HPV/Cotest 06/14/2027 06/13/2022 DTaP/Tdap/Td Immunization (8 - Td or Tdap) 03/07/2032 03/07/2022, 03/23/2013, 04/21/2003, Additional history exists Respiratory Syncytial Virus (RSV) Immunization (Adult) (1 - 1-dose 75+ series) 2064 Hepatitis B Immunization Completed , 02/03/1999, 12/30/1998 Hepatitis C Virus (HCV) Screening Completed 06/13/2022 Human Papillomavirus (HPV) Immunization (No Doses Required) Completed Meningococcal Immunization (ACWY) Aged Out No longer eligible based on patient's age to complete this topic Rotavirus Immunization Aged Out No lo nger eligible based on patient's age to complete this topic Procedures Procedure Name Priority Date/Time Associated Diagnosis Comments PATHOLOGY CYTOLOGY WASTE WATER OR WATER PLANT OPERATOR Routine 06/13/2022 10:18 AM CDT Well woman exam HEPATITIS C ANTIBODY Routine 06/13/2022 10:17 AM CDT Need for hepatitis C screening test HUMAN PAPILLOMA VIRUS (HPV) Routine 06/13/2022 10:16 AM CDT Well woman exam from Last 3 Months or Most Recently Relevant to Health Maintenance Results * PATHOLOGY CYTOLOGY WASTE WATER OR WATER PLANT OPERATOR (06/13/2022 10:18 AM CDT) SPECIMEN ADEQUACY Satisfactory for evaluation. Endocervical/transf ormation zone component is absent. 06/16/2022 8:39 AM CDT [facility] DESCRIPTIVE DIAGNOSIS NEGATIVE FOR INTRAEPITHELIAL LESIONS OR MALIGNANCY. 06/16/2022 8:39 AM CDT [facility] at 0839 CDT Automated Examination Analysis of this sample has been assisted by an automated imaging and review system ([employer] Imaging System, [employer], [place], [place]). This case is further evaluated and finalized by a extrusion technician and/or pathologist. 06/16/2022 8:39 AM CDT [facility] Disclaimer The PAP smear is a screening test designed to detect cancerous or precancerous cells of the uterine cervix. It is one of the best means available for detection of cervical cancer but still carries an inherent false-negative rate. The consequences of a false-negative PAP result can be minimized by adhering to current screening guidelines. The following are general guidelines recommended by the ACS, ASCP, ASCCP, and ACOG: PAP testing is recommended every three years for women 21-29, Co-Testing, a PAP test in conjunction with an HPV (Human Papillomavirus) test for women ages 30-65, and no PAP or HPV testing for women under the age of 21 or older than 65 unless clinically indicated. 06/16/2022 8:39 AM CDT [facility] Other CERVIX UTERI STRUCTURE / Unknown Non-Phlebotomy Collection / Unknown 06/13/2022 10:18 AM CDT 06/13/2022 10:18 AM CDT Sophie Green PAC PATHOLOGY/CYTOLOGY ORDER JAI Final Result Performing Organization Address [facility] Co de Phone Number [facility] [address] [place] [address], [place] * HEPATITIS C ANTIBODY (06/13/2022 10:17 AM CDT) hepatitis C antibody 0.09 <1 S/CO [facility] ARCH [id number] B 06/13/2022 8:47 PM CDT [facility] Comment: Signal/Cutoff ratio < 0.79 is Nondetected Signal/Cutoff ratio 0.80-0.99 is Grayzone Signal/Cutoff ratio > 0.99 is Detected Supplemental assays are recommended if signal/cutoff ratio is >/=1.00. Signal/cutoff ratio result >/= 5.00 is 97% predictive of positivity for recombinant immunoblot assay (RIBA) and will be reported to the [place] [facility] Public [facility] as required. Blood Venipuncture / Unknown 06/13/2022 10:17 AM CDT 06/13/2022 10:17 AM CDT Sophie Green PAC CHEMISTRY ORDERABLES Fin al Result Performing Organization Address [facility] Co de Phone Number [facility] [address] [place] [address], [place] * HUMAN PAPILLOMA VIRUS (HPV) (06/13/2022 10:16 AM CDT) HPV OTHER HIGH RISK TYPES, PCR NEGATIVE NEGATIVE 06/14/2022 2:10 PM CDT [facility] Comment: The following Other High Risk types were not detected: 31, 33, 35, 39, 45, 51, 52, 56, 58, 59, 66, and 68. A negative high-risk HPV result does not exclude the possibility of future cytologic HSIL or underlying CIN2-3 or cancer. The presence of PCR inhibitors may cause false negative or invalid results. If concentrations of whole blood in the sample exceed 1.5% (dark red or brown coloration) in PreservCyt solution, there is a likelihood of obtaining a false-negative result. HPV TYPE 16 NEGATIVE NEGATIVE 06/14/2022 2:10 PM CDT [facility] Comment: A negative high-risk HPV result does not exclude the possibility of future cytologic HSIL or underlying CIN2-3 or cancer. The presence of PCR inhibitors may cause false negative or invalid results. If concentrations of whole blood in the sample exceed 1.5% (dark red or brown coloration) in PreservCyt solution, there is a likelihood of obtaining a false-negative result. HPV TYPE 18 NEGATIVE NEGATIVE 06/14/2022 2:10 PM CDT [facility] Comment: A negative high-risk HPV result does not exclude the possibility of future cytologic HSIL or underlying CIN2-3 or cancer. The presence of PCR inhibitors may cause false negative or invalid results. If concentrations of whole blood in the sample exceed 1.5% (dark red or brown coloration) in PreservCyt solution, there is a likelihood of obtaining a false-negative result. HPV ORDER BE USED FOR SCREENING OR DIAGNOSTIC SCREENING 06/14/2022 2:10 PM CDT [facility] Other Non-Phlebotomy Collection / Unknown 06/13/2022 10:16 AM CDT 06/13/2022 10:16 AM CDT Narrative [facility] - 06/14/2022 2:10 PM CDT Performed by Real-Time Polymerase Chain Reaction (PCR) on the [employer] 4800. This assay has been validated for use with post-aliquot samples from the [employer] processor. us Sophie Green PAC LAB SEND OUTS Final Re sult [facility] [address] [place] [address], [place] [facility] [address] [place] [address] from Last 3 Months or Most Recently Relevant to Health Maintenance Insurance MEDICAID [place] Advance Directives * Full Code (Latest Code Status on File) Date Activated Date Inactivated Comments 05/10/2016 11:56 AM 05/10/2016 3:46 PM CPR-Full Tr eatment: FULL ARREST: Attempt Resuscitation/CPR wit intubation and mechanical ventilation. PRE-ARREST: Use entire range of life support measures to stabilize the patient. * Full Code Date Activated Date Inactivated Comments 05/06/2016 10:08 AM 05/06/2016 2:56 PM CPR-Full Tr eatment: FULL ARREST: Attempt Resuscitation/CPR wit intubation and mechanical ventilation. PRE-ARREST: Use entire range of life support measures to stabilize the patient. Care Teams Crop Research Scientist Relationship Specialty Start Date End Date Sophie Green PAC [address] [place] [address] PCP - General Physician Tractor Operator Laser Leveling 04/16/20 Ross Funez DPM Podiatry 11/10/21
--- OUTSIDE RECORDS SUMMARY | 2025-02-16 11:26 | XMS_ITS | Clinical Summary ---
Author Organization [facility] lin Address [address] [facility] [address] Care Team Providers Care Geology Professor Name Role Phone Unavailable Primary Care Provider Unavailabl e Social History Tobacco Use Types Packs/Day Years Used Date Smoking Tobacco: Never Assessed Comments Unknown Sex and Gender Information Value Date Recorded Sex Assigned at Not on file Legal Sex Female 9:22 AM EST Gender Identity Not on file Sexual Orientation Not on file Plan of Treatment Not on file Medical Devices Not on file Insurance [employer]YN[employer]
--- OUTSIDE RECORDS SUMMARY | 2025-02-16 11:26 | XMS_ITS | Clinical Summary ---
Author Organization [facility] Address [address] [place] [phone] Phone Care Team Providers Care Dental Hygiene Administrative Assistant Name Role Phone Unavailable Primary Care Provider Unavailabl e Social History Tobacco Use Types Packs/Day Years Used Date Smoking Tobacco: Never Assessed Comments Unknown Sex and Gender Information Value Date Recorded Sex Assigned at Not on file Legal Sex Female 9:41 AM CDT Gender Identity Not on file Sexual Orientation Not on file Plan of Treatment Health Maintenance Due Date Last Done Comments DTAP/TDAP/TD VACCINES (1 - Tdap) 2008 HEPATITIS B VACCINES (1 of 3 - 19+ 3-dose series) 08/2008 HPV/Cotest (21-29) 2010 CERVICAL CANCER SCREENING 07/28/2019 HPV/Cotest (30-65) 07/28/2019 PAP SMEAR 07/28/2019 INFLUENZA VACCINE (#1) 2024 HPV VACCINES (No Doses Required) Completed Insurance [employer] [place]
--- OUTSIDE RECORDS SUMMARY | 2025-02-16 11:26 | XMS_ITS | Clinical Summary ---
Author Organization [facility] Address [address] [place] [address] Care Team Providers Care Compugraph Operator Name Role Phone Sophie Green Primary Care Provider [phone] Franky Ruano PA Unavailable [phone] Allergies Active Allergy Reactions Criticality Noted Date Comments Amoxicillin Hives High Reaction: Hives, , Reaction: Hives, Medications cholecalciferol (VITAMIN D-3) 2000 unit capsule Take 1 capsule (2,000 Units total) by mouth daily 30 capsule 11/09/2020 Active HYDROcodone-lenny taminophen (NORCO) 5-325 mg per tabletIndicatio ns:Pain Take 1-2 tablets every 4 hours as needed for pain 33 tablet 12/16/2020 Active ibuprofen (ADVIL,MOTRIN) 800 mg tablet Take 1 tablet (800 mg total) by mouth every 6 (six) hours as needed for pain 60 tablet 12/16/2020 Active Active Problems Problem Noted Date Diagnosed Date Dislocation of left patella 11/06/2020 Overview (11/06/2020): Added automatically from request for surgery [id number] Loose body of left knee 11/06/2020 Overview (11/06/2020): Added automatically from request for surgery [id number] delivery delivered 06/02/2016 Dysuria 06/02/2016 05/10/2016 Immunizations Immunization Administration Dates Next Due Pneumococcal Polysaccharide PPV23 12/30/2013 Tdap 12/27/2013 Surgical History Surgery Date Site/Laterality Comments OTHER SURGICAL HISTORY 02/20/2009 - 02/19/2010 : OTHER SURGICAL HISTORY 02/20/2013 - 02/19/2014 : SECTION TUBAL LIGATION Medical History Medical History Date Comments Hx Other Medical ; Comm ents: 1' LTCS for h/o HSV. FOB #1.; Outcome: 40W0D week 7lb(s) 6 oz Male Hx Other Medical ; Comm ents: [facility]. Scheduled RLTCS. FOB #2.; Outcome: 39W2D week 5lb(s) 11 oz Male Hx Other Medical ; Comm ents: Current - FOB #2 H/O blood clots Family History Medical History Relation Name Comments Colon cancer Maternal Grandfather Cancer, colon; Cause of : Cancer, colon Diabetes Mother Diabetes mellit us; Diabetes Mother's Brother Diabetes me llitus; Breast cancer Mother's Sister x3 Cancer, niraj ast; RED 01/02/2016 - Onset 50s Cancer Other Clotting disorder Other Relation Name Status Comments Maternal Grandfather (Age 70) Mother Mother's Brother Mother's Sister x3 Other Social History Tobacco Use Types Packs/Day Years Used Date Smoking Tobacco: Every Day Cigarettes 1 10 Smokeless Tobacco: Never Tobacco Cessation:Ready to Q uit: Yes; Counseling Given: Yes Comments:Smoking History Packs/day: 1 Packs Alcohol Use Standard Drinks/Week Comments No 0 (1 standard drink = 0.6 oz pur e alcohol) AUDIT-C Answer Date Recorded Q1: How often do you have a drink containing alc ohol? 2-4 times a month 11/09/2020 Q2: How many drinks containi ng alcohol do you have on a typical day when you are drinking? 3 or 4 11/09/2020 Q3: How often do you have si x or more drinks on one occasion? Never 11/09/2020 Personal Safety Answer Date Recorded Have you ever been in or are you currently in a harmful physical or emotional relationship or is someone making you feel afraid or unsafe? Denies 01/26/2024 Comments Unknown Sex and Gender Information Value Date Recorded Sex Assigned at Not on file Legal Sex Female 4:17 AM NON LICENSED NUCLEAR EQUIPMENT OPERATOR Gender Identity Not on file Sexual Orientation Not on file Last Filed Vital Signs Vital Sign Reading Time Taken Comments Blood Pressure 102/64 01/26/2024 12:00 PM NON LICENSED NUCLEAR EQUIPMENT OPERATOR Pulse 65 01/26/2024 12:00 PM NON LICENSED NUCLEAR EQUIPMENT OPERATOR Temperature 36.6 C (97.9 F) 01/26/2024 8:35 AM NON LICENSED NUCLEAR EQUIPMENT OPERATOR Respiratory Rate 14 01/26/2024 12:00 PM NON LICENSED NUCLEAR EQUIPMENT OPERATOR Oxygen Saturation 99% 01/26/2024 12:00 PM NON LICENSED NUCLEAR EQUIPMENT OPERATOR Inhaled Oxygen Concentration - - Weight 108 kg (238 lb) 12/16/2020 10:03 AM CDT Height 177.8 cm (5' 10) 01/26/2024 8:35 AM NON LICENSED NUCLEAR EQUIPMENT OPERATOR Body Mass Index 34.15 12/16/2020 10:03 AM CDT Plan of Treatment Health Maintenance Due Date Last Done Comments Depression Screening 1989 Hepatitis C Screening 1989 Varicella Vaccines (1 of 2 - 13+ 2-dose series) 2002 Regular Well Visit/Exam 18-64 07/28/2007 Pneumococcal vaccine <65 (2 of 2 - PCV) 12/30/2014 12/30/2013 HPV Vaccines (1 - 3-dose SCD M series) 2016 Cervical Cancer Screening 12/29/2016 12/30/2015, 10/2015 Influenza Vaccine (#1) 2024 DTaP/Tdap/Td Vaccine (9 - Td or Tdap) 03/07/2032 03/07/2022, 12/27/2013, 03/23/2013, Additional history exists Hepatitis B Screening Completed 06/07/1999 , 02/03/1999, 12/30/1998 Procedures Procedure Name Priority Date/Time Associated Diagnosis Comments THINPREP TIS PAP REFLEX HPV MRNA E6/E7, CHLAMYDIA/N.GONORRH OEAE Routine 12/30/2015 2:11 PM NON LICENSED NUCLEAR EQUIPMENT OPERATOR from Last 3 Months or Most Recently Relevant to Health Maintenance Results * THINPREP TIS PAP REFLEX HPV mRNA E6/E7, CHLAMYDIA/N.GONORRHOEAE (12/30/2015 2:11 PM NON LICENSED NUCLEAR EQUIPMENT OPERATOR) SOURCE: SEE NOTE [facility] HISTORICAL RESULTS Comment:Cervix, Endocervix CLINICAL INFORMATION: SEE NOTE [facility]ORICAL RESULTS Comment: 17WKS LMP SEE NOTE [facility]ISTORICAL RESULTS Comment:10/29/15 Previous Pap SEE NOTE [facility] RESULTS Comment:NEG 2000 Prev. Bx SEE NOTE [facility] RESULTS Comment:INFORMATION NOT PROV IDED Pap, specimen adequacy SEE NOTE [facility]OR[facility] RESULTS Comment: Satisfactory for evaluation. Endocervical/transformation zone component present. HPV interp SEE NOTE [facility]OR[facility] RESULTS Comment:Negative for intraep ithelial lesion or malignancy. Lactobacillus species SEE NOTE [facility]ISTORICAL RESULTS Comment: This Pap test has been evaluated with computer assisted technology. Assembler Truck Trailer SEE NOTE [facility] HISTORICAL RESULTS Comment: MARILYNN, CT(ASCP) CT screening location: [place] [address] [place] [address] Test performed at [facility] [address] Director: CHANDLER OLIVERA MD Infection: SEE NOTE [facility] HISTORICAL RESULTS Comment: Fungal organisms morphologically consistent with Valorie spp. 12/30/2015 2:11 PM NON LICENSED NUCLEAR EQUIPMENT OPERATOR Idania Feliz MD LAB PATHOLOGY ORDERAB LES Final Result [facility] HISTORICAL RESULTS from Last 3 Months or Most Recently Relevant to Health Maintenance Insurance [facility] Care Teams Compugraph Operator Relationship Specialty Start Date End Date Sophie Green PA 2 [facility] [address] [address] PCP - General Template Checker 11/06/20 Franky Ruano PA [address] [address] Physician Press Tender [facility] 11/09/20
--- NOTE | 2025-02-16 11:39 | ED_ITS ---
HPI - Dental/Oral General Chief complaint: Dental/Oral Stated complaint: tooth infection/trouble breathing Time Seen by Provider: 02/16/25 11:25 Source: patient and RN notes reviewed Mode of arrival: ambulatory Limitations: no limitations History of Present Illness HPI Narrative: 34-year-old female presents Express Care complaining of upper respiratory symptoms on room left lower dental pain for 2-3 weeks. Patient says she has an infected to to her left lower gum. Patient also reports having cough, congestion, mucopurulent nasal drainage, chest congestion, mild shortness of breath, and sinus pressure to has not got any better as well. Patient has tried [id number] cold and flu medication of relief. Patient denies any significant past medical problems. Related Data Allergies Allergy/AdvReac Type Severity Reaction Status Date / Time amoxicillin Allergy Unknown Hives Verified 02/16/25 11:28 Review of Systems Review of Systems: CONSTITUTIONAL: Denies fever, chills, or sweats. EYES: Denies visual changes, redness, or discharge. ENT: Positive for congestion, sinus pressure, sore throat. Negative for otalgia. MOUTH: Positive for dental pain CARDIOVASCULAR: Denies chest pain, palpitations, or edema. RESPIRATORY: Positive for cough and dyspnea. Negative for wheezing or difficulty breathing. GASTROINTESTINAL: Denies abdominal pain, nausea, vomiting, or diarrhea. GENITOURINARY: Denies dysuria or hematuria. SKIN: Denies rash or itching. MUSCULOSKELETAL: Denies back pain, joint pain, or myalgia. NEUROLOGIC: Denies headache, numbness, or weakness. PSYCHIATRIC: Denies anxiety or depression. All other systems reviewed are negative, except as documented in HPI. ON LICENSE OF [facility] Past Medical History Medical History Delivery by section of full-term Tobacco abuse Hypertension Surgical History Surgical History Hx of tubal ligation Previous section Family History Family History Mother Diabetes mellitus Family history of hypercholesterolemia Grandparent Carcinoma of colon Other Cerebrovascular accident Family history of malignant neoplasm of breast Social History Social History Smoking packs per day: 0.5 Smoking cigarettes per day: 10.0 Smoking status: Current every day smoker Tobacco type: cigarettes Second hand tobacco smoke exposure: Yes Alcohol intake: current Substance use: current Substance use type: marijuana Gender identity (if verbalized by the patient): Female Comments At the time of my signature, I reviewed and agree with the nursing past medical, surgical, social, and family history. There is no relevant family history pertinent to the patient complaint. Exam Narrative: GENERAL: This is a well-nourished, well-developed adult, in no apparent distress. They are non ill-appearing, nontoxic appearing. HEAD: normocephalic, atraumatic. EYES: Sclera clear/white. Conjunctiva normal. Vision is grossly intact. Extraocular movements intact EARS: External ears normal, auditory canals clear and without drainage, TMs normal without perforation. Hearing grossly intact. NOSE: External nose normal with no obvious nasal discharge, nasal turbinates erythematous, no rhinorrhea. THROAT: Mucous membranes moist, posterior pharynx erythematous. PND present. Uvula midline. OROPHARYNX: 1st molar to left lower gum is erythematous with area of fluctuance. There is exudate present. Tongue is normal. No pain or swelling under the tongue. NECK: Neck supple, non-tender without lymphadenopathy, masses or thyromegaly. CARDIOVASCULAR: Regular rate and rhythm without murmurs, gallops, or rubs. RESPIRATORY: Clear to auscultation. Breath sounds equal bilaterally. No wheezes, rales, or rhonchi. Respiratory rate normal, respiratory effort nonlabored, no respiratory distress SKIN: warm, Dry, intact with no suspicious lesions or rash, good texture and turgor. NEURO: awake, alert, and oriented to person, place and time. There were no obvious focal neurologic abnormalities. EXTREMITIES: No joint tenderness, effusion, or edema noted. BACK: Nontender without deformity. Course Course Level of Care: Express Care Visit Vital Signs Vital signs: Vital Signs Temperature 98.1 F 02/16/25 11:26 Pulse Rate 96 02/16/25 11:26 Respiratory Rate 14 02/16/25 11:26 Blood Pressure 120/68 02/16/25 11:26 Pulse Oximetry 99 02/16/25 11:26 Oxygen Delivery Room Air 02/16/25 11:26 Temperature 98.1 F 02/16/25 11:26 Pulse Rate 96 02/16/25 11:26 Respiratory Rate 14 02/16/25 11:26 Blood Pressure 120/68 02/16/25 11:26 Pulse Oximetry 99 02/16/25 11:26 Oxygen Delivery Room Air 02/16/25 11:26 MDM MDM Narrative Medical decision making narrative: Given patient's length of symptoms likely she has a bacterial sinusitis, it also appears patient has a dental abscess present. Does allergy to penicillins. She reports hives. No history anaphylaxis. Will treat with cefdinir clindamycin. Patient nontoxic appearing, no apparent distress. Vital signs hemodynamically stable. Discussed physical exam findings. Advised supportive measures and signs/symptoms to go to the ER. Pt is appropriate for outpt treatment and f/u. Differential Diagnosis Differential Diagnosis: Differential diagnostic considerations for upper respiratory infection include upper respiratory infection, croup, otitis media, sinusitis, viral infection, bronchitis, influenza, pharyngitis, strep, uvulitis, dental abscess, dental pain, gingival abscess. Critical Care Time Critical Care Time Critical Care Time: No Discharge Plan Discharge Clinical Impression: Dental abscess Sinusitis Qualifiers: Sinusitis location: unspecified location Chronicity: acute Recurrence: non- recurrent Qualified Code(s): J01.90 - Acute sinusitis, unspecified Patient Disposition: Home Condition: Stable Instructions: Antibiotic Form, Dental Abscess (ED), Sinusitis (ED) Additional Instructions: [place] your teeth and floss at least 2 times a day. You may use mouthwash after each brushing as well. Follow-up with dentist next week. Take the antibiotics as directed and complete the course even if you start to feel better. You may use a Neti pot saline rinse 3 times a day with lukewarm distilled water Continue to take Tylenol or Motrin as needed for pain or fevers. Use the benzonatate tablets as needed for cough. Use a humidifier or vaporizer at night. Drink plenty of water. 8-10 glasses per day. Use flonase 2 times per day for 5 days then as needed Take mucinex 2 times per day and be sure to take with 8oz of water. Follow up with Primary provider in 3-5 days If you developed worsening swelling, fevers, difficulty swallowing or breathing, difficulty opening her jaw, swelling under the tongue, chest pains, vomiting, or any other concerns please go to the ER immediately. Patient Language: Armenian Prescriptions: New cefdinir 300 mg capsule 300 mg PO Q12H 7 Days Qty: 14 0RF clindamycin HCl [Cleocin HCl] 150 mg capsule 450 mg PO TID 7 Days Qty: 63 0RF Follow-up/Referrals: PHYSICIAN,CIRCUIT JUDGE [Primary Care Provider, Internal Medicine] Stand Alone Forms: Work/School Release IP Time of Disposition: 11:37
== END 2025-02-16 11:45 | disposition home or self-care (01) ==
DX: K04.7 Periapical abscess without sinus (principal); J01.90 Acute sinusitis, unspecified; I10 Essential (primary) hypertension; F17.210 Nicotine dependence, cigarettes, uncomplicated; F12.90 Cannabis use, unspecified, uncomplicated
CPT/HCPCS: 99213; G0463